=== PATIENT | female | born 1940 | race Caucasian/White ===

== ENCOUNTER 2016-12-24 15:35 | Inpatient (IN) | payer MEDICARE, OTHER ==
[~2016-12-24] VITALS: Ht 157.5 cm; Wt 79.4 kg
[2016-12-24] MEDS ORDERED: HCTZ25 MG PO (20:09)
[2016-12-24] MEDS ORDERED: SYNTHROID150 MCG PO (20:09)
[2016-12-24] MEDS ORDERED: PRAVACHOL40 MG PO (20:10)
[2016-12-24] MEDS ORDERED: MOBIC7.5 MG PO (20:12)
[2016-12-24] MEDS ORDERED: NEURONTIN 300300 MG PO (20:16)
[2016-12-24] MEDS ORDERED: BAYER CHEWABLE81 MG PO (20:19)
[2016-12-24] MEDS ORDERED: NEURONTIN600 MG PO (20:19)
[2016-12-24 20:36] VITALS: BP 112/53; BMI 32.1
[2016-12-25 04:00] VITALS: BP 104/41
[2016-12-25 07:06] LABS: BASOPHILS 0.3 % (0-2); EOSINOPHILS 1.4 % (0-7); HEMATOCRIT 35.1 % (36.0-48.0); HEMOGLOBIN 10.8 g/dL (12-16); IMMATURE GRANULOCYTES 0.3 % (0-5); LYMPHOCYTES 8.5 % (15-50); MCH 29.3 pg (26.0-34.0); MCHC 30.8 g/dL (31.0-37.0); MCV 95.4 fL (80.0-100.0); MEAN PLATELET VOLUME 10.1 fL (7.4-10.4); MONOCYTES 6.4 % (2-11); NEUTROPHILS 83.1 % (40-80); PLATELET COUNT 242 10x3/uL (130-400); RBC 3.68 10x6/uL (4.00-5.40); WBC 10.4 10x3/uL (4.8-10.8)
[2016-12-25 07:21] LABS: ANION GAP 9.3 mmol/L (8-16); CALCIUM 8.6 mg/dL (8.5-10.1); CARBON DIOXIDE 28.2 mmol/L (21.0-32.0); CREATININE - SERUM 0.8 mg/dL (0.6-1.3); POTASSIUM - SERUM 3.5 mmol/L (3.5-5.1)
--- NOTE | 2016-12-25 07:55 | NUR ---
PT AOX4 RESP EVEN AND NONLABORED PT DENIES NEEDS AT THIS TIME IV TO LEFT FOREARM PATENT AND INTACT SRX2 BED AT LOWEST SETTING CALL LIGHT WITHIN REACH WILL CONTINUE TO MONITOR
[2016-12-25 09:35] VITALS: BP 100/49
[2016-12-25 12:31] VITALS: BP 136/64
--- NOTE | 2016-12-25 12:37 | NUR ---
PATIENT WAS RECEIVED TO L&D ROOM 1278 FOR SPECULUM/PELVIC EXAM PER DR FELIZ. AFTER BEING PLACED IN [facility], DR FELIZ PERFORMED HER EXAM. A VAGINAL CULTURE WAS OBTAIN. FOLLOWING THE EXAM DR FELIZ PLACED SMALL CURLEX TAMPON IN THE PATIENTS VAGINA. PTS LEGS WERE REMOVED FROM [facility]. SHE WAS ASSISTED OUT OF BED AND GIVEN CLEAN UNDERWEAR AND SANITARY PADS FOR US. MED/SURG FLOOR WAS NOTIFIED THAT PATIENT IS READY TO RETURN TO ROOM VIA WHEELCHAIR. PATIENT TOLERATED THE PROCEDURES. CURRENTLY SITTING IN WHEELCHAIR WATCHING TV.
[2016-12-25 18:22] VITALS: BP 112/64
--- NOTE | 2016-12-25 19:56 | NUR ---
RECEIVED IN BEDROOM. SITTING IN BEDSIDE CHAIR. IN GOOD SPIRITS. COOPERATIVE WITH ASSESSMENTS. ALERT AND ORIENTED. CALL LIGHT IN REACH
[2016-12-25 20:00] VITALS: BP 90/47
--- NOTE | 2016-12-26 02:55 | NUR ---
RESTING IN BED EYES CLOSED. NO SIGNS OF DISTRESS. CALL LIGHT IN REACH
[2016-12-26 04:00] VITALS: BP 98/54
[2016-12-26 06:39] LABS: BASOPHILS 0.5 % (0-2); EOSINOPHILS 1.7 % (0-7); HEMATOCRIT 36.2 % (36.0-48.0); HEMOGLOBIN 11.2 g/dL (12-16); IMMATURE GRANULOCYTES 0.2 % (0-5); LYMPHOCYTES 9.6 % (15-50); MCH 29.3 pg (26.0-34.0); MCHC 30.9 g/dL (31.0-37.0); MCV 94.8 fL (80.0-100.0); MEAN PLATELET VOLUME 9.7 fL (7.4-10.4); MONOCYTES 7.7 % (2-11); NEUTROPHILS 80.3 % (40-80); PLATELET COUNT 265 10x3/uL (130-400); RBC 3.82 10x6/uL (4.00-5.40)
[2016-12-26 06:56] LABS: ANION GAP 7.1 mmol/L (8-16); CALCIUM 8.4 mg/dL (8.5-10.1); CREATININE - SERUM 0.8 mg/dL (0.6-1.3); MAGNESIUM - SERUM 1.7 mg/dL (1.8-2.4); PHOSPHOROUS 1.9 mg/dL (2.5-4.9); POTASSIUM - SERUM 3.1 mmol/L (3.5-5.1)
[2016-12-26 08:31] VITALS: BP 98/62
[2016-12-26 12:32] VITALS: BP 101/44
[2016-12-26 13:21] VITALS: Ht 157.5 cm; Wt 79.4 kg
--- NOTE | 2016-12-26 13:54 | NUR ---
Patient Name: BECKIE STONE Admission Status: Elective Accout number: [id number] Admission Date: 12-24-2016 : 1941 Admission Diagnosis: Attending: GEORGE Current LOS: 2 Anticipated DC Date: 12-30-2016 Planned Disposition: Home Primary Insurance: MEDICARE A & B Discharge Planning Comments: CM MET WITH PATIENT REGARDING DISCHARGE NEEDS AND PLANS. PATIENT STATED SHE LIVES ALONE AND WILL BE STAYING WITH A FRIEND ONCE DISCHARGED. PATIENT HAS 1 STEP TO ENTER HOME AND NO STAIRS INSIDE. PATIENT STATED SHE IS INDEPENDENT WITH HER CARE AND HAS A WALKER AT HOME IF NEEDED. PATIENTS PCP IS DR. KEITH IN [place] AND USES [facility] IN [place]. PATIENT DOES NOT WANT HOME HEALTH AT THIS TIME. CM WILL CONTINUE TO FOLLOW PATIENT WITH D/C NEEDS AND PLANS. PCP PUNEET NAVARRO [facility] [phone] HILLARY (DAUGHTER) [phone] Manager Alliance: Samantha Carbajal Is the patient Alert and Oriented? Yes 0 * How many steps to enter\exit or inside your home? 1 0 * PCP DR. KEITH [place] 0 * [facility] * Preadmission Environment Home Alone 0 * ADLs Independent 0 * Equipment Walker 0 * List name and contact numbers for known caregivers / representatives who currently or will assist patient after discharge: HILLARY (DAUGHTER) [phone] 0 * Community resources currently utilized None 0 * Additional services required to return to the preadmission environment? Yes 0 * Can the patient safely return to the preadmission environment? Yes 0 * Has this patient been hospitalized within the prior 30 days at any hospital? No 0 Grand Total: 0
[2016-12-26 16:09] VITALS: BP 122/43
[2016-12-26 20:00] VITALS: BP 109/51
--- NOTE | 2016-12-26 20:00 | NUR ---
ASSESMENT PER FLOWSHEET. PT DRINKING GOLYTELY SURGICAL PREP. IV PATENT LEFT FOREARM NS AT 100CC'S/HR PHYSICAL EDUCATION DEPARTMENT CHAIR OF DLIAUDID WITH SETTINGS AT 0.2MG Q10MIN WITH A 4MG Q4HR L/O. UP AD CECILE TO BR HAVING BROWN COLORED WATERY STOOLS.
--- NOTE | 2016-12-26 21:00 | NUR ---
MEDS GIVEN PER MAR.
[2016-12-27] VITALS (13 sets, daily range): BP systolic 82–163; BP diastolic 40–64
--- NOTE | 2016-12-27 | NUR ---
NPO AT THIS TIME FOR SURGERY IN AM. PATIENT DRANK 3/4 GALLON OF GOLYTELY AND THEN STATED COULD NOT TOLERATE ANYMORE.
--- NOTE | 2016-12-27 01:47 | NUR ---
EYES CLOSED RESPIRATIONS WITH EASE AND UNLABORED. REMAINS NPO AT THIS TIME.
[2016-12-27 03:46] LABS: BASOPHILS 0.4 % (0-2); EOSINOPHILS 1.3 % (0-7); HEMATOCRIT 35.3 % (36.0-48.0); HEMOGLOBIN 11.3 g/dL (12-16); IMMATURE GRANULOCYTES 0.3 % (0-5); LYMPHOCYTES 9.7 % (15-50); MCH 29.6 pg (26.0-34.0); MEAN PLATELET VOLUME 9.8 fL (7.4-10.4); MONOCYTES 8.6 % (2-11); NEUTROPHILS 79.7 % (40-80); PLATELET COUNT 285 10x3/uL (130-400); RBC 3.82 10x6/uL (4.00-5.40); RDW 14.9 % (11.5-14.5); WBC 10.4 10x3/uL (4.8-10.8)
[2016-12-27 03:47] LABS: MCV 92.4 fL (80.0-100.0)
[2016-12-27 03:59] LABS: CALC OSMOLALITY 275 mosm/kg (275-300); CALCIUM 8.5 mg/dL (8.5-10.1); CARBON DIOXIDE 26.7 mmol/L (21.0-32.0); CHLORIDE - SERUM 104 mmol/L (98-107); CREATININE - SERUM 0.6 mg/dL (0.6-1.3); GLUCOSE 92 mg/dL (74-106); POTASSIUM - SERUM 3.5 mmol/L (3.5-5.1); SODIUM 140 mmol/L (136-145); UREA NITROGEN 5 mg/dL (7-18); eGFR NON AFRICAN AMERICAN > 90 mL/min (90-120)
--- NOTE | 2016-12-27 04:00 | NUR ---
EYE CLOSED RESPIRATIONS WITH EASE AND UNLABORED.
--- NOTE | 2016-12-27 06:14 | NUR ---
UP AD CECILE TO BR. MEDS GIVEN PO WITH SIP OF WATER.
--- NOTE | 2016-12-27 20:00 | NUR ---
ASSESSMENT PER FLOWSHEET. DRESSING TO ABDOMEN C/D/I NIK DRAIN PATENT ON RIGHT ABDOMEN COMPRESSED WITH BLOODY DRAINAGE. STOMA TO LEFT LOWER ABDOMEN IN PLACE WITH OSTOMY BAG IN PLACE NO DRAINAGE NOTED. IV PATENT RT ARM OF S AT 125CC'S/HR AIR CONDITIONING MECHANIC OF DILAUDID IN USE WITH SETTINGS AT 0.2MG Q10MIN W/4MG Q4H L/O.
--- NOTE | 2016-12-27 22:00 | NUR ---
MEDS GIVEN PER MAR.
[2016-12-28] VITALS: BP 94/45
--- NOTE | 2016-12-28 | NUR ---
EYES CLOSED RESPIRATIONS WITH EASE AND UNLABORED.
--- NOTE | 2016-12-28 02:00 | NUR ---
REPOSITIONED IN BED SR UP X2. CALL LIGHT WITHIN REACH.
--- NOTE | 2016-12-28 02:00 | NUR ---
RESTING QUIETLY DENIES NEEDS.
--- NOTE | 2016-12-28 03:00 | NUR ---
PT BATHED AND ALL LINEN AND GOWN CHANGED. EMPTIED 50 ML OF SEROUS DRAINAGE FROM COLOSTOMY. EMPTIED 30 ML OF PINK DRAINAGE FROM YENIFER DRAIN. CALL LIGHT WITHIN REACH.
--- NOTE | 2016-12-28 04:00 | NUR ---
RESTING QUIETLY RESPIRATIONS WITH EASE AND UNLABORED.
[2016-12-28 05:01] LABS: BASOPHILS 0.2 % (0-2); EOSINOPHILS 0.1 % (0-7); HEMATOCRIT 32.6 % (36.0-48.0); HEMOGLOBIN 10.2 g/dL (12-16); IMMATURE GRANULOCYTES 0.5 % (0-5); LYMPHOCYTES 6.7 % (15-50); MCH 29.3 pg (26.0-34.0); MCHC 31.3 g/dL (31.0-37.0); MCV 93.7 fL (80.0-100.0); MEAN PLATELET VOLUME 9.8 fL (7.4-10.4); MONOCYTES 6.2 % (2-11); NEUTROPHILS 86.3 % (40-80); PLATELET COUNT 286 10x3/uL (130-400); RBC 3.48 10x6/uL (4.00-5.40); RDW 15.3 % (11.5-14.5); WBC 11.3 10x3/uL (4.8-10.8)
[2016-12-28 05:20] LABS: CALC OSMOLALITY 282 mosm/kg (275-300); CALCIUM 7.6 mg/dL (8.5-10.1); CARBON DIOXIDE 29.1 mmol/L (21.0-32.0); CHLORIDE - SERUM 108 mmol/L (98-107); CREATININE - SERUM 0.5 mg/dL (0.6-1.3); GLUCOSE 109 mg/dL (74-106); POTASSIUM - SERUM 3.8 mmol/L (3.5-5.1); SODIUM 143 mmol/L (136-145); UREA NITROGEN 4 mg/dL (7-18); eGFR NON AFRICAN AMERICAN > 90 mL/min (90-120)
--- NOTE | 2016-12-28 06:32 | NUR ---
NO CHANGES IN ASSESSMENT.
[2016-12-28 08:36] VITALS: BP 90/50
[2016-12-28 08:51] VITALS: BP 81/94
[2016-12-28 13:12] VITALS: BP 86/42
[2016-12-28 14:50] VITALS: BP 103/46
--- NOTE | 2016-12-28 15:30 | NUR ---
NUTRITION MONITORING & EVAL CHART REVIEWED. PT REMAINS NPO S/P SURGERY. NO CURRENT NUTRITION SUPPORT. WILL MONITOR DIET ADVANCEMENT, PO INTAKE. RD FOLLOWING
--- NOTE | 2016-12-28 19:00 | NUR ---
BEDSIDE REPORT RECEIVED AND CARE OF PT ASSUMED. PT LYING IN SUPINE POSITION WITH EYES CLOSED. IV IN LEFT FA PATENT WITH NS INFUSING AT 125 ML/HR. ENTERTAINMENT AGENT . DILAUDID IN USE FOR PAIN CONTROL. YENIFER DRAIN ON RIGHT WELL COMPRESSED WITH BLOODY DRAINAGE PRESENT IN BULB. COLOSTOMY PATENT WITH SEROUS DRAINAGE IN COLLECTION BAG. WILL MONITOR CLOSLEY FOR NEEDS. CALL LIGHT WITHIN REACH.
[2016-12-28 20:00] VITALS: BP 100/56
--- NOTE | 2016-12-28 21:49 | NUR ---
HS MEDICATIONS GIVEN. WILL CONTINUE TO MONITOR FOR NEEDS.
[2016-12-29] VITALS: BP 104/49
[2016-12-29 04:00] VITALS: BP 105/66
--- NOTE | 2016-12-29 04:30 | NUR ---
EMPTIED 425 ML OF ALEJANDRINA URINE FROM RAINES BAG.
[2016-12-29 06:17] LABS: BASOPHILS 0.1 % (0-2); EOSINOPHILS 0.7 % (0-7); HEMATOCRIT 32.1 % (36.0-48.0); HEMOGLOBIN 9.9 g/dL (12-16); IMMATURE GRANULOCYTES 0.8 % (0-5); LYMPHOCYTES 7.4 % (15-50); MCH 29.3 pg (26.0-34.0); MCHC 30.8 g/dL (31.0-37.0); MEAN PLATELET VOLUME 9.5 fL (7.4-10.4); MONOCYTES 7.3 % (2-11); NEUTROPHILS 83.7 % (40-80); PLATELET COUNT 249 10x3/uL (130-400); RBC 3.38 10x6/uL (4.00-5.40); RDW 15.9 % (11.5-14.5); WBC 10.7 10x3/uL (4.8-10.8)
[2016-12-29 06:35] LABS: CALC OSMOLALITY 284 mosm/kg (275-300); CALCIUM 8.2 mg/dL (8.5-10.1); CARBON DIOXIDE 23.5 mmol/L (21.0-32.0); CHLORIDE - SERUM 109 mmol/L (98-107); CREATININE - SERUM 0.5 mg/dL (0.6-1.3); GLUCOSE 87 mg/dL (74-106); SODIUM 145 mmol/L (136-145); UREA NITROGEN 4 mg/dL (7-18); eGFR NON AFRICAN AMERICAN > 90 mL/min (90-120)
[2016-12-29 06:36] LABS: POTASSIUM - SERUM 3.2 mmol/L (3.5-5.1)
--- NOTE | 2016-12-29 07:46 | NUR ---
STARTED POTASSIUM 10 MEQ PER ELECTROLYTE PROTOCOL. PASSED ON IN REPORT THAT PT WILL NEED X4 RIDERS AND BE RE-CHECKED 1 HOUR POST.
--- NOTE | 2016-12-29 08:08 | NUR ---
AWAKE AND ALERT. ORIENTED X3. NO C/O THIS AM. DISCUSSED COLOSTOMY WITH PATIENT AND ANSWERED SOME QUESTIONS. LUNGS ARE CLEAR BILATERALLY, NO COUGH NOTED. BUT DIMINISHED THROUGHOUT. WILL MONITOR. SKIN IS INTACT WITHOUT REDNESS EXCEPT INCISION TO MID ABDOMEN WHICH HAS A DRY INTACT DRESSING IN PLACE. COLOSTOMY IS PATENT WITH SCANT SEROUS LOOKING DISCHARGE. STOMA IS PINK AND VIABLE. IV TO LEFT FOREARM IS PATENT WITHOUT REDNESS AT INSERTION SITE. RAINES PATENT WITH CLEAR YELLOW URINE. DENIES NEEDS.
--- NOTE | 2016-12-29 10:00 | NUR ---
RESTING QUIETLY IN BED. DENIES NEEDS. DENIES PAIN.
[2016-12-29 10:13] VITALS: BP 114/54
[2016-12-29 12:27] VITALS: BP 114/63
[2016-12-29 16:08] VITALS: BP 131/60
--- NOTE | 2016-12-29 19:40 | NUR ---
RESTING QUIETLY IN BED. DENIES NEEDS. NO CHANGES NOTED.
[2016-12-29 20:00] VITALS: BP 135/51
[2016-12-30] VITALS: BP 142/68
[2016-12-30 04:00] VITALS: BP 143/67
--- NOTE | 2016-12-30 07:30 | NUR ---
AWAKE AND ALERT. ORIENTED X3. NO C/O THIS AM. LUNGS ARE CLEAR BILATERALLY, NO COUGH NOTED. SKIN IS INTACT WITHOUT REDNESS EXCEPT SMALL INCISION TO LOWER MID ABDOMEN, WHICH IS CLEAN AND DRY WITH CLIPS INTACT, YENIFER DRAIN PATENT WITH SEROUS DRAINAGE NOTED. COLOSTOMY IS PATENT WITH BROWNISH DISCHARGE AT THIS TIME. STOMA IS PINK AND VIABLE. IV TO LEFT FOREARM IS PATENT WITHOUT REDNESS AT INSERTION SITE. DENIES NEEDS.
[2016-12-30 08:42] VITALS: BP 146/85
[2016-12-30 08:43] LABS: CALC OSMOLALITY 278 mosm/kg (275-300); CALCIUM 8.3 mg/dL (8.5-10.1); CARBON DIOXIDE 21.9 mmol/L (21.0-32.0); CHLORIDE - SERUM 109 mmol/L (98-107); GLUCOSE 113 mg/dL (74-106); POTASSIUM - SERUM 3.4 mmol/L (3.5-5.1); SODIUM 141 mmol/L (136-145); UREA NITROGEN 5 mg/dL (7-18); eGFR NON AFRICAN AMERICAN 86 mL/min (90-120)
[2016-12-30 08:50] LABS: CREATININE - SERUM 0.7 mg/dL (0.6-1.3)
[2016-12-30] MEDS ORDERED: HYDROCODONE-APA1 TAB PO (09:03)
[2016-12-30] MEDS ORDERED: LEVAQUIN750 MG PO (09:04)
[2016-12-30] MEDS ORDERED: FLAGYL500 MG PO (09:04)
--- NOTE | 2016-12-30 09:30 | NUR ---
AMBULATED IN HALLWAY WITH PT USING RW. REPORTS NO INCREASED PAIN WITH ACTIVITY.
--- NOTE | 2016-12-30 12:30 | NUR ---
FULL LIQUID LUNCH SERVED. PATIENT ATE ALL OF SOUP AND SOME OF THE OTHER THINGS. REPORTS NO PAIN OR CRAMPING WITH REAL FOOD.
[2016-12-30 12:52] VITALS: BP 111/52
--- NOTE | 2016-12-30 13:47 | NUR ---
Nutrition Follow Up: Pt toelrated clear liquids and now diet has been advanced to full liquids. Labs and meds reviewed. Rec continue advancing diet as tolerated. Will provide selective menus and honor food preferences. RD following.
--- NOTE | 2016-12-30 14:25 | NUR ---
CM REASSESSMENT NOTE: PATIENT WILL DISCHARGE HOME WITH [facility]. PATIENT WILL BE STAYING WITH FRIEND (AUNG KATERINE). PATIENT SIGNED THE KULDEEP FORM. REFERRAL HAS BEEN SENT. PATIENTS FRIEND OR FAMILY WILL DRIVE HER TO [place] AT DISCHARGE. [facility]- [phone] FAX [phone] ATTN: SOLE CHIN FRIENDS ADDRESS IS [address] [place] [address] AND PHONE [phone]
--- NOTE | 2016-12-30 14:30 | NUR ---
CHANGED OSTOMY APPLIANCE TO TEACH PATIENT HOW TO DO THE SAME. SHE STATED SHE FEELS COMFORTABLE THAT SHE COULD DO IT AT HOME WITH SOME FURTHER HELF FROM HOME HEALTH. YENIFER DRAIN D/C WITH TIP INTACT WITHOUT DIFFICULTY. DRESSING TO LOWER ABDOMEN CHANGED WELL. INCISION IS CLEAN AND DRY WITH CLIPS INTACT.
--- NOTE | 2016-12-30 16:00 | NUR ---
SPOKE WITH DR. RENE RE PATIENTS DESIRE TO GO HOME TODAY. ORDERS RECEIVED.
[2016-12-30 16:45] VITALS: BP 132/91
--- NOTE | 2016-12-30 18:38 | NUR ---
DISCHARGED TO HOME WITH FAMILY AMBULATORY. DISCHARGE INSTRUCTIONS GIVEN BOTH VERBALLY AND WRITTEN. ALL QUESTIONS ANSWERED. PATIENT AND FAMILY VERBALIZED UNDERSTANDING OF SAME. NEEDED PRESCRIPTIONS GIVEN TO PATIENT. IV TO LEFT FOREARM D/C WITH CATHETER INTACT.
== END 2016-12-30 18:39 | disposition home health service (06) | DRG 330 ==
LOC: D.MS 15:35
PROVIDERS: ADMIT Surgery
PROC: 0DTN0ZZ Resection of Sigmoid Colon, Open Approach (ICD-10-PCS; principal; 2016-12-27 11:15)
PROC: 0D1N0Z4 Bypass Sigmoid Colon to Cutaneous, Open Approach (ICD-10-PCS; 2016-12-27 11:15)
DX: N82.3 Fistula of vagina to large intestine (principal); K57.32 Diverticulitis of large intestine without perforation or abscess without bleeding; N39.0 Urinary tract infection, site not specified; E03.9 Hypothyroidism, unspecified; K21.9 Gastro-esophageal reflux disease without esophagitis; E78.00 Pure hypercholesterolemia, unspecified; R15.9 Full incontinence of feces

== ENCOUNTER → 2017-02-15 09:41 | Outpatient (CLI) | payer MEDICARE, OTHER ==
[2016-12-26 13:21] VITALS: BMI 32.0
[~2017-02-15 09:41] MED LIST: BAYER CHEWABLE81 MG PO; FLAGYL500 MG PO; HCTZ25 MG PO; HYDROCODONE-APA1 TAB PO; LEVAQUIN750 MG PO; MOBIC7.5 MG PO; NEURONTIN 300300 MG PO; NEURONTIN600 MG PO; PRAVACHOL40 MG PO; SYNTHROID150 MCG PO
== END | disposition home or self-care (01) ==
LOC: D.CT 09:41
DX: K57.92 Diverticulitis of intestine, part unspecified, without perforation or abscess without bleeding (principal)

== ENCOUNTER 2017-02-28 05:13 | Inpatient (IN) | payer MEDICARE, OTHER ==
[~2017-02-28] VITALS: Ht 157.5 cm; Wt 77.3 kg
[2017-02-28] VITALS (9 sets, daily range): BP systolic 106–135; BP diastolic 44–57; Ht 157.5 cm; Wt 77.3 kg
[2017-02-28 06:34] LABS: BASOPHILS 0.5 % (0-2); EOSINOPHILS 1.7 % (0-7); HEMATOCRIT 39.3 % (36.0-48.0); HEMOGLOBIN 12.5 g/dL (12-16); IMMATURE GRANULOCYTES 0.4 % (0-5); LYMPHOCYTES 14.5 % (15-50); MCH 29.4 pg (26.0-34.0); MCHC 31.8 g/dL (31.0-37.0); MCV 92.5 fL (80.0-100.0); MEAN PLATELET VOLUME 10.5 fL (7.4-10.4); MONOCYTES 5.9 % (2-11); PLATELET COUNT 233 10x3/uL (130-400); RBC 4.25 10x6/uL (4.00-5.40); RDW 13.8 % (11.5-14.5); WBC 9.3 10x3/uL (4.8-10.8)
[2017-02-28 06:53] LABS: CALC OSMOLALITY 282 mosm/kg (275-300); CALCIUM 10.2 mg/dL (8.5-10.1); CARBON DIOXIDE 27.2 mmol/L (21.0-32.0); CHLORIDE - SERUM 100 mmol/L (98-107); CREATININE - SERUM 0.7 mg/dL (0.6-1.3); GLUCOSE 112 mg/dL (74-106); POTASSIUM - SERUM 3.6 mmol/L (3.5-5.1); SODIUM 141 mmol/L (136-145); UREA NITROGEN 14 mg/dL (7-18); eGFR NON AFRICAN AMERICAN 86 mL/min (90-120)
[2017-02-28] MEDS ORDERED: ULTRAM50 MG PO (07:00)
--- NOTE | 2017-02-28 15:04 | NUR ---
PT ADMITTED TO FLOOR PT IS LETHARGIC BUT ARROUSES EASILY TO TOUCH OR STIMULI. PT DILAUDID SOFTWARE ADMINISTRATOR SET UP AND INFUSING TO R HAND NO PROBLEMS. PT WITH BILAT SCDS ON AND PATENT. O2 AT 3L NC 98% O2 SAT. VS ARE WNL. NO S/S DISTRESS NOTED RR EVEN AND UNLABORED. PT RAINES TO GRAVITY, NG TUBE TO R NARE LIS PATENT. ABDOMEN WITH MULTIPLE DSNGS ALL CDI LEFT LOWER QUAD WITH NIK DRAIN WITH DRAINAGE RED DARK NOTED. DAUGHTER HILLARY AT BEDSIDE. WILL CONT TO MONITOR CLOSELY
--- NOTE | 2017-02-28 15:46 | NUR ---
PT VS ARE STILL WNL. PT STILL LETHARGIC BUT ARROUSES EASILY DENIES NEEDS DAUGHTER IS STILL AT BEDSIDE WILL CONT TOMONITOR
--- NOTE | 2017-02-28 16:46 | NUR ---
PT STILL SLEEPING NO S/S DISTRESS NOTED RR EVEN AND UNLABORED. VS ARE STILL WNL. WILL CONT TO MONITOR
--- NOTE | 2017-02-28 19:37 | NUR ---
PATIENT RESTING IN BED AND DENIES NEEDS AT THIS TIME. NO VISIBLE SIGNS OF DISTRESS NOTED. BED IN LOWEST POSITION AND CALL LIGHT WITHIN REACH. ENCOURAGED THE PATIENT TO CALL IF SHE HAS NEEDS.
[2017-03-01 04:00] VITALS: BP 129/58
[2017-03-01 05:59] LABS: BASOPHILS 0 % (0-2); EOSINOPHILS 0 % (0-7); HEMATOCRIT 32.3 % (36.0-48.0); HEMOGLOBIN 10.2 g/dL (12-16); IMMATURE GRANULOCYTES 0.2 % (0-5); LYMPHOCYTES 4.1 % (15-50); MCH 29.5 pg (26.0-34.0); MCHC 31.6 g/dL (31.0-37.0); MCV 93.4 fL (80.0-100.0); MEAN PLATELET VOLUME 10.2 fL (7.4-10.4); MONOCYTES 8.8 % (2-11); NEUTROPHILS 86.9 % (40-80); PLATELET COUNT 210 10x3/uL (130-400); RBC 3.46 10x6/uL (4.00-5.40)
[2017-03-01 06:19] LABS: WBC 12.3 10x3/uL (4.8-10.8)
[2017-03-01 06:25] LABS: ANION GAP 14.2 mmol/L (8-16); CALCIUM 8.6 mg/dL (8.5-10.1); CARBON DIOXIDE 24.6 mmol/L (21.0-32.0)
[2017-03-01 06:28] LABS: CREATININE - SERUM 0.9 mg/dL (0.6-1.3); POTASSIUM - SERUM 4.8 mmol/L (3.5-5.1)
--- NOTE | 2017-03-01 08:00 | NUR ---
PT AOX4 RESP EVEN AND NONLABORED PT DENIES NEEDS AT THIS TIME PT DENIES NEEDS AT THIS TIME IV TO RIGHT HAND PATENT AND INTACT AT THIS TIME SRX2 BED AT LOWEST SETTINGS CALL LIGHT WITHIN REACH WILL CONTINUE TO MONITOR
[2017-03-01 08:21] VITALS: BP 122/48
[2017-03-01 12:00] VITALS: BP 113/42
[2017-03-01 16:36] VITALS: BP 153/50
[2017-03-01 20:00] VITALS: BP 97/43
--- NOTE | 2017-03-01 20:00 | NUR ---
ASSESSMENT PER FLOWSHEET. NGT TO LIWS. IV PATENT RT HAND NS AT 125CC'S/HR LEVEL VIAL INSPECTOR OF DILAUDID IN USE WITH SETTINGS AT 0.2MG Q10MIN W/4MG Q4H L/O DRSG TO ABD. C/D/I NIK DRAIN LT ABD. PATENT AND COMPRESSED WITH BLOODY DRAINAGE. RAINES TO BS DRAINAGE WITH ALEJANDRINA COLORED UA.
--- NOTE | 2017-03-01 22:00 | NUR ---
MEDS PER MAR.
[2017-03-02] VITALS: BP 112/45
--- NOTE | 2017-03-02 | NUR ---
EYES CLOSED RESPIRATIONS WITH EAS AND UNLABORED..
--- NOTE | 2017-03-02 03:00 | NUR ---
RESTING QUIETLY DENIES NEEDS
[2017-03-02 04:00] VITALS: BP 122/47
[2017-03-02 05:39] LABS: BASOPHILS 0.1 % (0-2); EOSINOPHILS 0 % (0-7); HEMATOCRIT 25.9 % (36.0-48.0); IMMATURE GRANULOCYTES 0.3 % (0-5); MCH 29.5 pg (26.0-34.0); MCHC 30.9 g/dL (31.0-37.0); MONOCYTES 9.1 % (2-11); NEUTROPHILS 84.5 % (40-80); PLATELET COUNT 171 10x3/uL (130-400); RDW 14.3 % (11.5-14.5)
[2017-03-02 05:43] LABS: MCV 95.6 fL (80.0-100.0); RBC 2.71 10x6/uL (4.00-5.40)
[2017-03-02 05:46] LABS: CALC OSMOLALITY 279 mosm/kg (275-300); CALCIUM 8.1 mg/dL (8.5-10.1); CARBON DIOXIDE 26.2 mmol/L (21.0-32.0); CHLORIDE - SERUM 107 mmol/L (98-107); GLUCOSE 95 mg/dL (74-106); POTASSIUM - SERUM 4.5 mmol/L (3.5-5.1); SODIUM 139 mmol/L (136-145); UREA NITROGEN 19 mg/dL (7-18)
[2017-03-02 05:47] LABS: CREATININE - SERUM 0.6 mg/dL (0.6-1.3); eGFR NON AFRICAN AMERICAN > 90 mL/min (90-120)
--- NOTE | 2017-03-02 06:00 | NUR ---
RESTING QUIETLY NO CHANGES IN ASSESSMENT.
--- NOTE | 2017-03-02 07:15 | NUR ---
REPORT RECIEVED, ASSUMED CARE OF PT. NO COMPLAINTS AT THIS TIME. RESTING IN BED. BED IN LOWEST POSITION, SIDE RAILS UP X 2, CALL LIGHT WITHIN REACH.
[2017-03-02 08:58] VITALS: BP 100/41
--- NOTE | 2017-03-02 10:05 | NUR ---
NGT CLAMPED ORDERED.
--- NOTE | 2017-03-02 12:31 | NUR ---
NUTRITION F/U CHART REVIEWED. CLEAR LIQUID DIET STARTED. WILL MONITOR DIET ADVANCEMENT, PT PROGRESS. RD FOLLOWING
[2017-03-02 12:48] VITALS: BP 94/50
--- NOTE | 2017-03-02 13:04 | NUR ---
Patient Name: BECKIE STONE Admission Status: Elective Accout number: [id number] Admission Date: 02-28-2017 : 1941 Admission Diagnosis: Attending: RJ RENE Current LOS: 2 Anticipated DC Date: Planned Disposition: Home with Home Health Primary Insurance: MEDICARE A & B Discharge Planning Comments: CM met with patient to assess discharge planning needs. Patient lives home alone where she states she is independent and she will return there. Patient states that her daughter (Kim) will be the one driving her home. Patient said that she has a bed side commode, cane, walker, shower chair & elevated toilet seat. Patient stated that she is current with [facility]. CM will continue to follow and assist. PCP: PUNEET GALDAMEZ KIM (DAUGHTER) [phone] Premium Auditor: Karly Givens * Is the patient Alert and Oriented? Yes 0 * How many steps to enter\exit or inside your home? 0 0 * PCP PUNEET [place] 0 * Pharmacy [facility] 0 * Preadmission Environment Home Alone 0 * ADLs Independent 0 * Equipment Bedside Commode Cane Elevated [place] Seat Rolling Walker Shower Chair Walker 0 * List name and contact numbers for known caregivers / representatives who currently or will assist patient after discharge: DAUGHTER- KIM [phone] 0 * Community resources currently utilized Home Health 0 * Please name any agencies selected above. [facility] 0 * Additional services required to return to the preadmission environment? No 0 * Can the patient safely return to the preadmission environment? Yes 0 * Has this patient been hospitalized within the prior 30 days at any hospital? No 0 Grand Total: 0
--- NOTE | 2017-03-02 17:32 | NUR ---
RAINES CATHETER D/C'D ORDERED.
[2017-03-02 17:46] VITALS: BP 93/35
--- NOTE | 2017-03-02 18:57 | NUR ---
PT RESTING IN ROOM. NO COMPLAINTS AT THIS TIME. BED IN LOWEST POSITION, SIDE RAILS UP X 2, CALL LIGHT WITHIN REACH.
[2017-03-02 20:00] VITALS: BP 98/41
[2017-03-03] VITALS: BP 96/31
[2017-03-03 04:00] VITALS: BP 96/37
[2017-03-03 05:37] LABS: BASOPHILS 0.2 % (0-2); EOSINOPHILS 1.1 % (0-7); IMMATURE GRANULOCYTES 0.6 % (0-5); LYMPHOCYTES 9.1 % (15-50); MCH 29.6 pg (26.0-34.0); MCHC 30.8 g/dL (31.0-37.0); MEAN PLATELET VOLUME 9.8 fL (7.4-10.4); MONOCYTES 6.8 % (2-11); NEUTROPHILS 82.2 % (40-80); PLATELET COUNT 180 10x3/uL (130-400); RDW 14.4 % (11.5-14.5); WBC 10.6 10x3/uL (4.8-10.8)
[2017-03-03 05:49] LABS: HEMOGLOBIN 7.4 g/dL (12-16)
--- NOTE | 2017-03-03 05:54 | NUR ---
PATIENT IN BED WITH EYES CLOSED RESTING QUIETLY. IV INTACT. CALL LIGHT WITHIN REACH.
[2017-03-03 05:58] LABS: CALC OSMOLALITY 287 mosm/kg (275-300); CALCIUM 9.1 mg/dL (8.5-10.1); CARBON DIOXIDE 25.4 mmol/L (21.0-32.0); CHLORIDE - SERUM 109 mmol/L (98-107); CREATININE - SERUM 0.7 mg/dL (0.6-1.3); GLUCOSE 92 mg/dL (74-106); POTASSIUM - SERUM 4.3 mmol/L (3.5-5.1); SODIUM 143 mmol/L (136-145); UREA NITROGEN 21 mg/dL (7-18); eGFR NON AFRICAN AMERICAN 86 mL/min (90-120)
--- NOTE | 2017-03-03 06:05 | NUR ---
RECEIVED CALL FROM LAB. PT HGB IS 7.4, PAGED BIOMEDICAL ENGINEER AND SPOKE WITH DR STEPHEN. ORDERED TO GIVE PT 2 UNITS. ORDERS PUT IN IMMEDIATELY
--- NOTE | 2017-03-03 07:14 | NUR ---
REPORT RECEIVED FROM ENVIRONMENTAL FIELD SERVICES TECHNICIAN NURSE. CALL LIGHT IN REACH.
[2017-03-03 08:32] VITALS: BP 118/47
--- NOTE | 2017-03-03 08:51 | NUR ---
ASSSESSMENT COMPLETED. AM MEDS ADMINISTERED. SCDs TO BLE. WILL START 2ND IV FOR PRBCs. CALL LIGHT IN REACH. WILL CONTINUE WITH PLAN OF CARE.
--- NOTE | 2017-03-03 10:24 | NUR ---
IV SITED TO RIGHT FOREARM WITH 22 GA X1 STICK.
--- NOTE | 2017-03-03 11:10 | NUR ---
PRBC UNIT 1 INITIATED @ 125 CC/HR VIA PUMP.
--- NOTE | 2017-03-03 13:10 | NUR ---
NO NEEDS VOICED AT THIS TIME. CALL LIGHT IN REACH.
--- NOTE | 2017-03-03 15:00 | NUR ---
UNIT 1 OF BLOOD IS COMPLETED. VSS. CALL LIGHT IN REACH.
[2017-03-03 16:44] VITALS: BP 117/51
--- NOTE | 2017-03-03 17:05 | NUR ---
PLACED ON AND OFF BEDPAN.
--- NOTE | 2017-03-03 18:58 | NUR ---
LYING IN BED,WITHOUT DISTRESS.CALL LIGHT IN REACH
--- NOTE | 2017-03-03 19:00 | NUR ---
REPORT RECIEVED, ASSUMED CARE. PATIENT BED WITH NO COMPLAINTS AT THIS TIME. IV INTACT. CALL LIGHT WITHIN REACH.
[2017-03-03 20:00] VITALS: BP 96/53
--- NOTE | 2017-03-03 20:30 | NUR ---
PATIENT SECOND UNIT OF BLOOD INFUSING. IV INTACT. VS STABLE. NO COMPLAINTS AT THIS TIME. WILL CONTINUE TO MONITOR. CALL LIGHT WITHIN REACH.
--- NOTE | 2017-03-03 22:20 | NUR ---
PATIENT IN BED WITH IV INTACT. NO COMPLAINTS. BLOOD INFUSING AT THIS TIME. VS STABLE. CALL LIGHT WITHIN REACH.
--- NOTE | 2017-03-03 23:38 | NUR ---
PATIENT BLOOD FINISHED AT THIS TIME. NO COMPLAINTS OR SIGNS OF DISTRESS. VS STABLE. IV INTACT. CALL LIGHT WITHIN REACH.
[2017-03-04] VITALS (7 sets, daily range): BP systolic 121–160; BP diastolic 54–72
--- NOTE | 2017-03-04 01:02 | NUR ---
PATIENT VS STABLE. NO COMPLAINTS AT THIS TIME. IV TUBING CHANGED ON PRIMARY FLUIDS. IV INTACT X 2. CALL LIGHT WITHIN REACH.
--- NOTE | 2017-03-04 04:18 | NUR ---
PATIENT IN BED WITH IV INTACT. NO COMPLAINTS OR SIGNS OF DISTRESS. CALL LIGHT WITHIN REACH.
--- NOTE | 2017-03-04 07:30 | NUR ---
RECIEVED PT DURING WALKING ROUNDS, PT RESTING IN CHAIR WITH NO COMPLAINTS OF PAIN OR DISCOMFORT AT THIS TIME. ASSESSMENT DONE PER FLOWSHEET. BED IN LOW POSITION AND CALL LIGHT WITHIN REACH. WILL CONTINUE TO MONITOR.
--- NOTE | 2017-03-05 01:20 | NUR ---
ALERT & ORIENTED. UP TO TOILET WITH WALKER AND MINIMAL ASSIST. PT REPORTS BLOODY/MUCOUS STOOLS. PT INCONTINENT AT TIMES. REDUCED IV FLUIDS TO KVO PER ORDER. PT REQUESTED SLEEPING PILL. GAVE RESTORIL 30 MG PER TELEPHONE ORDER. COOLER ROOM WORKER FOR PAIN CONTROL. GAVE PT ICE CREAM AND PUDDING PER ORDER FOR FULL LIQUID DIET. PT RESTING QUIETLY. NO DISTRESS NOTED. WILL CONTINUE TO MONITOR.
[2017-03-05 04:04] VITALS: BP 151/67
--- NOTE | 2017-03-05 07:30 | NUR ---
RECIEVED PT DURING WALKING ROUNDS. PT RESTING IN BED WITH NO COMPLAINTS OF PAIN OR DISCOMFORT AT THIS TIME. ASSESSMENT DONE PER FLOWSHEET. BED IN LOW POSITION AND CALL LIGHT WITHIN REACH, WILL CONTINUE TO MONITOR.
[2017-03-05 08:57] VITALS: BP 130/64
[2017-03-05 12:35] VITALS: BP 150/58
[2017-03-05] MEDS ORDERED: HYDROCODON-ACE1 EAC7 PO (16:46)
[2017-03-05] MEDS ORDERED: COLACE100 MG PO (16:47)
--- NOTE | 2017-03-05 17:19 | NUR ---
NIK DRAIN REMOVED PER ORDER AT THIS TIME. PT TOLERATED WELL, DRESSING APPLIED TO SITE.
--- NOTE | 2017-03-05 18:33 | NUR ---
LATE ENTRY 1545 MET WITH THE PATIENT AT THE BEDSIDE. SHE WAS OOB IN THE CHAIR. SHE IS PLANNING FOR DISCHARGE TO HOME THIS LATE PM. HER PRIMARY NURSE, JOSTIN, IS CALLING HER DAUGHTER, HILLARY, SO THAT HER SON IN LAW CAN PROVIDE TRANSPORTATION TO HER FRIENDS HOME. SHE WILL BE STAYING WITH HER FRIEND, AUNG GARCIAS, [address] CONTACT PHONE NUMBER FOR MS GARCIAS IS [phone]. POC OBTAINED FOR CHOICE OF HOME HEALTH PROVIDER. SHE WAS ON SERVICE / [facility]. TC TO [facility]. SPOKE WITH DENA, THE METAL HANGING HELPER NURSE. REVIEWED REFERRAL. SHE WILL CONTCT THE PATIENT REGARDING VISIT. PHONE NUMBER [phone] FAX [phone]. FAXED REFERRAL AND DISCHARGE INSTRUCTIONS. DENIES ANY OTHER NEEDS.
--- NOTE | 2017-03-05 18:59 | NUR ---
IV REMOVED, DISCHARGE INSTRUCTIONS GIVEN. PT DISCHARGED TO HOME VIA WHEELCHAIR WITH A FAMILY MEMBER.
--- NOTE | 2017-03-07 16:32 | OP ---
PATIENT NAME: BECKIE STONE MEDICAL RECORD: [id number] :41 LOCATION:[id number] ADMISSION DATE:02/28/17 SURGEON: ROBIN RENE MD DATE OF OPERATION: 02/28/2017 PREOPERATIVE DIAGNOSES: 1. Colostomy. 2. History of colovesical fistula. 3. Hypertension. 4. Hypothyroidism. 5. Hypercholesterolemia. 6. Arthritis. POSTOPERATIVE DIAGNOSES: 1. Colostomy. 2. History of colovesical fistula. 3. Hypertension. 4. Hypothyroidism. 5. Hypercholesterolemia. 6. Arthritis. PROCEDURE: Laparoscopic converted to open colostomy reversal with mobilization of splenic flexure. SURGEON: Robin Rene MD REPORT OF PROCEDURE: The patient's abdomen was prepped and draped in sterile fashion. The left lower quadrant colostomy was cored out using electrocautery through the skin and subcutaneous tissues and through the fascia. Once we entered the abdominal cavity, then I was able to elevate the distal sigmoid and transected it where it appeared normal. A pursestring was placed around it with 2-0 Prolene and a 25 EEA anvil was inserted. The pursestring was tied down tightly around this and the bowel and the anvil were placed back into the abdominal cavity. My finger dissected anything I could find and there was noted to be some inflammatory adhesions to the anterior abdominal wall, which was taken down carefully with sharp dissection. I eventually placed a 5-mm trocar in the patient's right lateral abdomen. We then closed the fascia of the ostomy transversely using multiple interrupted 0 Prolenes. At this point, we insufflated the abdomen and placed another 5-mm trocar in the right lower quadrant. We performed a sharp dissection and extensive amount of adhesions in the abdominal wall and pelvis. We eventually had placed another 5-mm trocar in the midline just above the umbilicus and in order to be able to see better, we changed the original 5-mm trocar into an 11-mm trocar, so we use a 10-mm camera. We continued our dissection through all the adhesions in the pelvis and eventually was able to find the previously placed sutures on the distal end of the rectal stump. The sutures were pulled up, but I was still not able to make out much in the pelvic region. There was a lot of inflammatory changes present. We found a few planes so irritated that I eventually decided to make a lower midline incision and perform a blunt dissection. This was done using a 15 blade to open up the skin and electrocautery was used to open up all the way down through the subcutaneous tissues and fascia into the abdominal cavity. I was eventually able to dissect out the rectum and mobilized it up into our field. The rectum was cleaned off of any fatty adhesions that were present distally and doing this, a small opening was made in the rectum. We eventually pass the dilators and trocars up through the patient's rectum and followed by the 25 EEA OPERATIVE REPORT [id number] BECKIE STONE stapler. An end-to-end anastomosis was performed with the 25 EEA stapler. There was noted to be some tension on the anastomosis, so this was oversewn with Lemberted 3-0 silks and we decided to mobilize the splenic flexure more. We tested the anastomosis under water by instilling air into the rectum and saw no evidence of a leak. We also checked the patient's vaginal wall and saw no evidence of injury present. A 19-Spanish Murtaza drain was then inserted through the left lower quadrant and placed in the pelvis. We mobilized the patient's omentum off of the hepatic flexure. I was able to mobilize it down into the pelvis overlying the anastomosis and separate the anastomosis from the posterior vaginal wall and bladder. We then closed the midline fascia using running #1 loop PDS times 2. We went back in laparoscopically and attempted to mobilize the patient's splenic flexure and upon doing this, we ran into a large cystic mass. I tried to mobilize around the cystic mass and was not able to tell where exactly it was coming from, thought it could have been from the kidney or pancreas, I just was not able to tell and eventually made a left subcostal incision overlying this cyst. Upon doing this, I was eventually able to ascertain that the cyst was coming from the patient's left kidney. The cyst was then left alone. The splenic flexure was completely mobilized including the white line of Toldt. At this point, we had good mobilization of that left side of the colon and it took some of the tension off of the pelvic anastomosis. At this point, the posterior layer of the fascia was closed with running #1 Vicryl and the anterior layer was closed with running #1 loop PDS times 2. The subcutaneous tissues and all the wounds were irrigated out with normal saline and then reapproximated with interrupted 3-0 Vicryls and the skin incisions were closed with fozia. The ostomy site was closed with a pursestring 3-0 Vicryl in the deep subcutaneous tissue followed by a 2-0 Vicryl pursestring just underneath the skin and the dermis. COMPLICATIONS: None. CONDITION: Stable. ANESTHESIA: General endotracheal. BLOOD LOSS: 100 mL. TRANSINT:[id number] Voice Confirmation ID: [id number] DOCUMENT ID: [id number] CC: ROBIN Chakraborty MD at 1632 CC: [id number] DICTATION DATE: 02/28/17 1345 ELECTRIC TRAIN DRIVER: 02/28/172020 DIS IN 03/05/17 [address] [place] [address]
== END 2017-03-05 19:02 | disposition home health service (06) | DRG 330 ==
LOC: D.SDCHOLD 05:13 → D.MS 05:13 → D.SDCHOLD 07:30 → D.MS 14:18 → D.SDCHOLD 03-02 15:03 → D.MS 03-02 15:06
PROVIDERS: ADMIT Surgery
PROC: 0DNW4ZZ Release Peritoneum, Percutaneous Endoscopic Approach (ICD-10-PCS; 2017-02-28)
PROC: 0DBE0ZZ Excision of Large Intestine, Open Approach (ICD-10-PCS; principal; 2017-02-28 07:30)
PROC: 0DNL4ZZ Release Transverse Colon, Percutaneous Endoscopic Approach (ICD-10-PCS; 2017-02-28 07:30)
DX: Z43.3 Encounter for attention to colostomy (principal); D62 Acute posthemorrhagic anemia; N73.6 Female pelvic peritoneal adhesions (postinfective); Z53.31 Laparoscopic surgical procedure converted to open procedure

== ENCOUNTER 2019-04-15 07:13 | Day surgery (SDC) | payer MEDICARE, OTHER ==
[~2019-04-15] VITALS: Ht 157.5 cm; Wt 72.6 kg
[~2019-04-15 07:13] MED LIST changes: +COLACE100 MG PO; +HYDROCODON-ACE1 EAC7 PO; +ULTRAM50 MG PO
[2019-04-15 07:41] LABS: HEMOGLOBIN 12.7 g/dL (12-16); MCH 30.4 pg (26.0-34.0); MCHC 31.8 g/dL (31.0-37.0); MCV 95.7 fL (80.0-100.0); MEAN PLATELET VOLUME 10.3 fL (7.4-10.4); RBC 4.18 10x6/uL (4.00-5.40); RDW 13.3 % (11.5-14.5); WBC 9.4 10x3/uL (4.8-10.8)
[2019-04-15] MEDS ORDERED: PROZAC20 MG PO (09:00)
[2019-04-15 09:01] VITALS: BP 153/77; Ht 157.5 cm; Wt 72.6 kg
--- NOTE | 2019-04-15 13:10 | NUR ---
DC INSTRUCTIONS GIVEN TO PT/FAMILY. STATE UNDESTANDING.
--- NOTE | 2019-04-15 13:28 | NUR ---
DC'D IV CATH FULLY INTACT.
--- NOTE | 2019-04-15 13:45 | NUR ---
PT LEFT UNIT VIA WC AT 1345
--- NOTE | 2019-04-19 09:50 | OP ---
PATIENT NAME: BECKIE STONE MEDICAL RECORD: [id number] :42 [facility] DATE: SURGEON: MAYO REES MD DATE OF OPERATION: 04/15/2019 PREOPERATIVE DIAGNOSES: Chronic sinusitis, nasal obstruction. POSTOPERATIVE DIAGNOSES: Chronic sinusitis, nasal obstruction. PROCEDURE: Right middle meatal antrostomy, right anterior ethmoidectomy and cautery of bilateral inferior turbinates. SURGEON: Mayo Rees MD ANESTHESIA: General orotracheal. BLOOD LOSS: Less than 5 cc. SPECIMENS: Cultures from right maxillary sinus. COMPLICATIONS: None. DISPOSITION: Recovery stable. PROCEDURE IN DETAIL: She was brought to the operating room and placed in supine position, sedated and intubated by anesthesia. The table was turned 90 degrees. Head drape was applied and she was positioned for sinus surgery. She had been decongested with Afrin preoperatively. Both sides of the nose were examined using a headlight and nasal speculum. Both inferior turbinates, the right uncinate, and middle turbinate were injected with a total of 1.5 cc of 1% lidocaine with 1:100,000 epinephrine and 2 Afrin pledgets were placed in each of the nose. She was positioned, prepped and draped in the usual fashion for sinus surgery. All the Afrin pledgets were removed. The 0-degree scope was used to examine both sides of the nose and inferior turbinates were large, but normal. Floor of the nose and septum was normal. Middle meatus and middle turbinate was normal. Nasal vault and nasopharynx were normal bilaterally. No lesions, masses or polyps. The right middle meatus was gently medialized with a freer. The uncinate was fractured anteriorly and taken down with a microdebrider. This exposed the area of the meatus, which was covered up with some mucosal edema. Microdebrider was used to take down that and expose the ostia. Curved olive tip suction was inserted with using a Luki trap. It was suctioned and irrigated with saline and suctioned to send for cultures. Then, the ethmoidal bulla was entered inferomedially and the anterior ethmoids were taken down with the microdebrider. There really was no purulence, just some mild mucosal edema that was all taken down cleanly. The inferior turbinates were then cauterized with suction cautery and outfractured with a Louisa elevator. The maxillary sinus was then irrigated repeatedly with 30 cc syringe, saline, and a curved olive tip suction and suctioned. The ostia was clean and nice. The ethmoid cavity was clean. Some mupirocin ointment was placed in the maxillary sinus and the anterior ethmoid, really was no significant bleeding. The nasopharynx was suctioned. With the field all clean and dry, there was no packing placed in the nose. She was awakened, extubated, and transported to recovery in good condition. No complications. TRANSINT:[id number] Voice Confirmation ID: [id number] DOCUMENT ID: [id number] OPERATIVE REPORT [id number] BECKIE STONE, MAYO SALEH at 0950 CC: [id number] DICTATION DATE: 04/15/19 1200 RECYCLE DRIVER: 04/15/19 1223 [facility] 04/15/19 [id number] [place] [address]
--- NOTE | 2019-04-19 09:50 | HP ---
PATIENT: BECKIE STONE MEDICAL RECORD: [id number] ACCOUNT: [id number] LOCATION:[facility] : 42 ADMISSION DATE: 04/15/19 PCP: PATSY BATISTA HISTORY AND PHYSICAL EXAMINATION PREOPERATIVE HISTORY AND PHYSICAL HISTORY: She is a 78-year-old and she has been having headaches and sinusitis, has been refractory to medical management. She has been admitted for sinus surgery. PAST MEDICAL HISTORY: Includes reflux, hypothyroidism, diverticulitis. PAST SURGICAL HISTORY: Includes hysterectomy, tonsillectomy, appendectomy, D and C. MEDICATIONS: Meloxicam, fluoxetine, gabapentin, pravastatin, aspirin has been held. ALLERGIES: TO SULFA. PHYSICAL EXAMINATION: GENERAL: She is healthy-appearing, developmentally normal. FACE: Normal, symmetric, no lesions. EYES: Sclerae and conjunctivae are normal. NOSE: Large turbinates. No masses, polyps. ORAL CAVITY AND OROPHARYNX: Tongue protrudes in midline. Pharynx is normal. NECK: No masses, no adenopathy. CHEST: Clear. CARDIOVASCULAR: Regular rate and rhythm, no murmur. EXTREMITIES: Normal. IMPRESSION: Right chronic maxillary and ethmoid sinusitis. PLAN: Right middle meatal antrostomy and anterior ethmoidectomy and cauterization of both inferior turbinates. TRANSINT:[id number] Voice Confirmation ID: [id number] DOCUMENT ID: [id number] JOHN WOODWARD MD at 0950 CC: [id number] DICTATION DATE: 04/11/19 1432 CLINICAL SALES CONSULTANT: 04/11/19 1501 [facility] 04/15/[address] [address]
== END 2019-04-15 13:45 | disposition home or self-care (01) ==
LOC: D.OPS 07:13 → D.PAN 07:30 → D.OPS 09:30 → D.PAN 09:55 → D.OPS 10:00
PROVIDERS: Anesthesiology; ATTEND Otolaryngology
DX: J32.0 Chronic maxillary sinusitis (principal); J34.89 Other specified disorders of nose and nasal sinuses